=== PATIENT | female | born 1965 | race American Indian/Alaskan Native ===

== ENCOUNTER 2019-10-13 09:12 | Emergency (ER) | payer MEDICAID ==
--- NOTE | 2019-10-13 11:30 | Consultation ---
History of Present Illness Consult date: 10/13/19 History of present illness: [facility] Consult Services Date of Service: 10/13/2019 11:15:18 Impression: Toxic and metabolic, BP related. Comments/Sign-Out: Patient presented with gen weakness and dizziness, she was taken to CT and she was about to pass out but she did not. She has no focal weakness but she is generally weak, moves all equally, and no speech issues. - Toxic and metabolic work up - BP management - Presyncope work up Metrics: [facility] Notification Time: 10/13/2019 11:14:21 Arrival Time: 10/13/2019 09:00:00 Stamp Time: 10/13/2019 11:15:18 Time First Login Attempt: 10/13/2019 11:22:14 Video Start Time: 10/13/2019 11:22:14 Symptoms: Gen weakness NIHSS Start Assessment Time: 10/13/2019 11:23:02 Patient is not a candidate for tPA. Patient was not deemed candidate for tPA thrombolytics because of Resolved symptoms (no residual disabling symptoms). CT head showed no acute hemorrhage or acute core infarct. CT head was reviewed. Clinical Presentation is not Suggestive of Large Vessel Occlusive Disease, Patient is not a Candidate for Thrombectomy ED Physician notified of diagnostic impression and management plan on 10/13/2019 11:29:28 Our recommendations are outlined below. Recommendations: Activate Stroke Protocol Admission/Order Set Stroke/Telemetry Floor Neuro Checks Bedside Swallow Eval DVT Prophylaxis IV Fluids, Normal Saline Head of Bed Below 30 Degrees Euglycemia and Avoid Hyperthermia (PRN Acetaminophen) Antiplatelet Therapy Recommended Lipid Panel to Be Obtained, if Not Done in the Last 30 Days Therapies: Physical Therapy, Occupational Therapy, Speech Therapy Assessment When Applicable Disposition: Neurology Follow Up Recommended Sign Out: Discussed with Emergency Department Provider History of Present Illness: Patient is a 54 year old Female. Patient was brought by private transportation with symptoms of Gen weakness Patient presented with gen weakness and dizziness, she was taken to CT and she was about to pass out but she did not. She has no focal weakness but she is generally weak, moves all equally, and no speech issues. CT head showed no acute hemorrhage or acute core infarct. CT head was reviewed. Examination: 1A: Level of Consciousness - Alert; keenly responsive + 0 1B: Ask Month and Age - Both Questions Right + 0 1C: Blink Eyes & Squeeze Hands - Performs Both Tasks + 0 2: Test Horizontal Extraocular Movements - Normal + 0 3: Test Visual Lipscomb - No Visual Loss + 0 4: Test Facial Palsy (Use Grimace if Obtunded) - Normal symmetry + 0 5A: Test Left Arm Motor Drift - Drift, but doesn't hit bed + 1 5B: Test Right Arm Motor Drift - Drift, but doesn't hit bed + 1 6A: Test Left Leg Motor Drift - Drift, but doesn't hit bed + 1 6B: Test Right Leg Motor Drift - Drift, but doesn't hit bed + 1 7: Test Limb Ataxia (FNF/Heel-Watters) - No Ataxia + 0 8: Test Sensation - Normal; No sensory loss + 0 9: Test Language/Aphasia - Normal; No aphasia + 0 10: Test Dysarthria - Normal + 0 11: Test Extinction/Inattention - No abnormality + 0 NIHSS Score: 4 Patient was informed the Neurology Consult would happen via TeleHealth consult by way of interactive audio and video telecommunications and consented to receiving care in this manner. Due to the immediate potential for life-threatening deterioration due to underlying acute neurologic illness, I spent 35 minutes providing critical care. This time includes time for face to face visit via telemedicine, review of medical records, imaging studies and discussion of findings with providers, the patient and/or family. Dr Glen Aguayo [facility] Case [id number] Medications and Allergies Allergies Allergy/AdvReac Type Severity Reaction Status Date / Time No Known Allergies Allergy Verified 10/06/14 11:11 Home Medications Medication Instructions Recorded Confirmed Last Taken Type Fluticasone [Flonase] 1 spray NS QDAY #1 bottle 10/06/14 Unknown Rx Lisinopril/Hydrochlorothiazide 2 tab PO QDAY 10/06/14 10/06/14 10/06/14 10:00 History [Zestoretic 20-12.5 mg] Metoprolol [Lopressor TAB] 100 mg PO BID #60 tablet 10/06/14 Unknown Rx Pravastatin [Pravachol] 40 mg PO QDAY 10/06/14 10/06/14 10/06/14 10:00 History amLODIPine 10 mg PO QDAY 10/06/14 10/06/14 10/06/14 10:00 History carvediloL [Coreg] 12.5 mg PO BID #60 tablet 10/06/14 Unknown Rx Physical Examination - Vital Signs Vital Signs: Vital Signs Temp Pulse Resp BP Pulse Ox 97.4 F L 93 H 18 198/106 100 10/13/19 09:50 10/13/19 09:50 10/13/19 09:50 10/13/19 09:50 10/13/19 09:50 Results - Laboratory Findings Abnormal Lab Findings: Abnormal Labs 10/13/19 11:05 POC Glucose 109 H
--- NOTE | 2019-10-13 11:32 | Cat Scan Report ---
CT head/brain wo con INDICATION: Code stroke. TECHNIQUE: Routine CT head without contrast. All CT scans at this location are performed using CT dos e reduction for ALARA by means of automated exposure control. COMPARISON: None. FINDINGS: BRAIN / INTRACRANIAL CONTENTS: No acute hemorrhage, mass effect, midline shift, or hydrocephalus. No appreciable acute large territorial or lacunar infarct. There are chronic infarcts in the right occip ital lobe and right gangliocapsular region. ORBITS: No significant abnormality of visualized orbits. SINUSES / MASTOIDS: No significant abnormality of visualized sinuses and mastoid air cells. ADDITIONAL FINDINGS: None. IMPRESSION: 1. No appreciable acute infarct or other acute intracranial abnormality. 2. 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 Findings were discussed with Dr. Segovia at 10:27 AM central time on 10/13/2019. Signer Name: Armani Uribe MD Signed: 10/13/2019 11:27 AM Workstation Name: [id number]
[2019-10-13] MEDS ORDERED: MECLIZINE 25 MG TAB PO ONE (11:43)
[2019-10-13] MEDS ORDERED: SODIUM CHLORIDE 0.9% 1000 ML 1,000 ML IV ONE (11:44)
[2019-10-13] MEDS ORDERED: ONDANSETRON 4 MG/2 ML INJ IV ONE (11:44)
[2019-10-13] MEDS ORDERED: dexAMETHasone 20 MG/5 ML VIAL IV ONE (11:44)
[2019-10-13 12:12] LABS: Basophils % (Auto) 0.8 % (0.0-1.8); Eosinophils # (Auto) 0.2 K/mm3 (0.0-0.4); Eosinophils % (Auto) 3.5 % (0.0-4.3); Hematocrit 38.8 % (30.3-42.9); Hemoglobin 12.6 gm/dl (10.1-14.3); Lymphocytes # (Auto) 2.2 K/mm3 (1.2-5.4); Lymphocytes % (Auto) 35.1 % (13.4-35.0); Mean Corpuscular HGB Conc 33 % (30-34); Mean Corpuscular Volume 78 fl (79-97); Monocytes # (Auto) 0.3 K/mm3 (0.0-0.8); Monocytes % (Auto) 5.5 % (0.0-7.3); Platelet Count 273 K/mm3 (140-440); Red Blood Count 4.98 M/mm3 (3.65-5.03); Red Cell Distribution Width 14.8 % (13.2-15.2)
[2019-10-13 12:29] LABS: BUN/Creatinine Ratio 21; Blood Urea Nitrogen 30 mg/dL (7-17); Calcium 10.1 mg/dL (8.4-10.2); Hemolysis Index 12
[2019-10-13 13:31] LABS: INR 1.13 (0.87-1.13)
[2019-10-13 13:32] LABS: Partial Thromboplastin Time 31.2 Sec. (24.2-36.6)
--- NOTE | 2019-10-13 14:25 | Cat Scan Report ---
CTA HEAD AND NECK WITH CONTRAST HISTORY: Central dizziness COMPARISON: None. TECHNIQUE: All CT scans at this location are performed using CT dose reduction for ALARA by means of automated exposure control.. 3-D/MIP reformats postprocessed. Percentage stenosis is determined by d irect quantitative measurements of diseased internal carotid artery diameter compared with normal dis fatoumata internal carotid artery reference segments or by criteria similar to NASCET where applicable. CONTRAST: 100 ml of Omnipaque 350 FINDINGS: CTA HEAD: Intracranial vertebral arteries: The left vertebral artery is diminutive but remains patent intracran ially. The right vertebral artery is widely patent. Basilar artery: No significant abnormality. Posterior cerebral arteries: There is approximately 50% stenosis of the proximal left P1 segment of t he left PARACHUTE HARNESS RIGGER. Intracranial internal carotid arteries: There is mild atherosclerosis in the carotid siphons bilatera lly without significant stenosis. 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 Middle cerebral arteries: No significant abnormality. Dural venous sinuses:Not optimally opacified. No significant abnormality. CTA NECK: Aortic arch: There is 2 vessel branching pattern of the aortic arch with mild atherosclerotic calcifi cation without significant stenosis. Cervical vertebral arteries: The right vertebral artery is developmentally dominant. The left vertebr al artery is completely occluded from its origin in the neck to about the C5 vertebral level where it is reconstituted from collateral vessels and remains patent into the head. Common carotid arteries: No significant abnormality. Cervical internal carotid arteries: There is mild to moderate mixed plaque in both carotid bulbs with out any significant stenosis. Additional findings: There is global enlargement and heterogeneous appearance of the thyroid gland adhikari ggestive of goiter. IMPRESSION: 1. 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 2. Focal approximately 50% stenosis of the left P1 segment of the left PARACHUTE HARNESS RIGGER. 3. No additional large vessel occlusion or flow-limiting stenosis. Signer Name: Armani Uribe MD Signed: 10/13/2019 2:20 PM Workstation Name: [id number]
--- NOTE | 2019-10-13 14:25 | Cat Scan Report ---
CTA HEAD AND NECK WITH CONTRAST HISTORY: Central dizziness COMPARISON: None. TECHNIQUE: All CT scans at this location are performed using CT dose reduction for ALARA by means of automated exposure control.. 3-D/MIP reformats postprocessed. Percentage stenosis is determined by d irect quantitative measurements of diseased internal carotid artery diameter compared with normal dis fatoumata internal carotid artery reference segments or by criteria similar to NASCET where applicable. CONTRAST: 100 ml of Omnipaque 350 FINDINGS: CTA HEAD: Intracranial vertebral arteries: The left vertebral artery is diminutive but remains patent intracran ially. The right vertebral artery is widely patent. Basilar artery: No significant abnormality. Posterior cerebral arteries: There is approximately 50% stenosis of the proximal left P1 segment of t he left RELAY SHOP TESTER. Intracranial internal carotid arteries: There is mild atherosclerosis in the carotid siphons bilatera lly without significant stenosis. 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 Middle cerebral arteries: No significant abnormality. Dural venous sinuses:Not optimally opacified. No significant abnormality. CTA NECK: Aortic arch: There is 2 vessel branching pattern of the aortic arch with mild atherosclerotic calcifi cation without significant stenosis. Cervical vertebral arteries: The right vertebral artery is developmentally dominant. The left vertebr al artery is completely occluded from its origin in the neck to about the C5 vertebral level where it is reconstituted from collateral vessels and remains patent into the head. Common carotid arteries: No significant abnormality. Cervical internal carotid arteries: There is mild to moderate mixed plaque in both carotid bulbs with out any significant stenosis. Additional findings: There is global enlargement and heterogeneous appearance of the thyroid gland adhikari ggestive of goiter. IMPRESSION: 1. 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 2. Focal approximately 50% stenosis of the left P1 segment of the left RELAY SHOP TESTER. 3. No additional large vessel occlusion or flow-limiting stenosis. Signer Name: Armani Uribe MD Signed: 10/13/2019 2:20 PM Workstation Name: [id number]
--- NOTE | 2019-10-13 14:57 | Emergency Department Report ---
ED Dizziness HPI - General Chief Complaint: Dizziness Stated Complaint: HEADACHE Time Seen by Provider: 10/13/19 11:33 Source: patient Mode of arrival: Ambulatory Limitations: No Limitations - History of Present Illness Initial Comments: Patient is a 54-year-old F [place] female who is presenting with dizziness for the past 2 weeks. Patient states symptoms worsened today. She states that while lying in bed when she turns her head sometimes when she is completely still she feels as though the room is spinning. She said some mild nausea. Patient states that occasionally she feels as though her eyes are rapidly moving side to side and there is been some instances where she feels as though she cannot speak. When the patient came to triage she seem to look off into space at one point was not responding briefly. Patient appeared weak at that time. Patient denies fevers chills cough cold or congestion at this time. - Related Data Home Medications Medication Instructions Recorded Confirmed Last Taken Lisinopril/Hydrochlorothiazide 2 tab PO QDAY 10/06/14 10/06/14 10/06/14 10:00 [Zestoretic 20-12.5 mg] Pravastatin [Pravachol] 40 mg PO QDAY 10/06/14 10/06/14 10/06/14 10:00 amLODIPine 10 mg PO QDAY 10/06/14 10/06/14 10/06/14 10:00 Previous Rx's Medication Instructions Recorded Last Taken Type Fluticasone [Flonase] 1 spray NS QDAY #1 bottle 10/06/14 Unknown Rx Metoprolol [Lopressor TAB] 100 mg PO BID #60 tablet 10/06/14 Unknown Rx carvediloL [Coreg] 12.5 mg PO BID #60 tablet 10/06/14 Unknown Rx Allergies Allergy/AdvReac Type Severity Reaction Status Date / Time No Known Allergies Allergy Verified 10/06/14 11:11 ED Review of Systems ROS: Stated complaint: HEADACHE Other details as noted in HPI Comment: All other systems reviewed and negative ED Past Medical Hx - Past Medical History Previous Medical History?: Yes Hx Hypertension: Yes - Surgical History Past Surgical History?: Yes Additional Surgical History: ECTOPIC - Social History Smoking Status: Former Smoker Substance Use Type: None - Medications Home Medications: Home Medications Medication Instructions Recorded Confirmed Last Taken Type Fluticasone [Flonase] 1 spray NS QDAY #1 bottle 10/06/14 Unknown Rx Lisinopril/Hydrochlorothiazide 2 tab PO QDAY 10/06/14 10/06/14 10/06/14 10:00 History [Zestoretic 20-12.5 mg] Metoprolol [Lopressor TAB] 100 mg PO BID #60 tablet 10/06/14 Unknown Rx Pravastatin [Pravachol] 40 mg PO QDAY 10/06/14 10/06/14 10/06/14 10:00 History amLODIPine 10 mg PO QDAY 10/06/14 10/06/14 10/06/14 10:00 History carvediloL [Coreg] 12.5 mg PO BID #60 tablet 10/06/14 Unknown Rx ED Physical Exam - General Limitations: No Limitations General appearance: alert, in no apparent distress - Head Head exam: Present: atraumatic, normocephalic - Eye Eye exam: Present: normal appearance - ENT ENT exam: Present: mucous membranes moist - Neck Neck exam: Present: normal inspection. Absent: tenderness, meningismus - Respiratory Respiratory exam: Present: normal lung sounds bilaterally. Absent: respiratory distress, wheezes, rales, rhonchi - Cardiovascular Cardiovascular Exam: Present: regular rate, normal rhythm, normal heart sounds. Absent: systolic murmur, diastolic murmur, rubs, gallop - GI/Abdominal GI/Abdominal exam: Present: soft, normal bowel sounds. Absent: distended, tenderness, guarding, rebound - Extremities Exam Extremities exam: Present: normal inspection - Back Exam Back exam: Present: normal inspection - Neurological Exam Neurological exam: Present: alert, oriented X3 - Psychiatric Psychiatric exam: Present: normal affect, normal mood - Skin Skin exam: Present: warm, dry, intact, normal color. Absent: rash ED Course Vital Signs 10/13/19 10/13/19 10/13/19 09:50 10:56 12:00 Temperature 97.4 F L 97.3 F L Pulse Rate 93 H 109 H 92 H Respiratory 18 20 18 Rate Blood Pressure 198/106 109/73 137/88 [Right] O2 Sat by Pulse 100 100 97 Oximetry - Reevaluation(s) Reevaluation #1: 10/13/19 14:56 Stroke alert was called and the patient arrived because she has dizziness plus another neurological symptom. Patient also started on IV fluids and was given medication for dizziness. Patient given 50 mg of Antivert. ED Medical Decision Making - Lab Data Result diagrams: 10/13/19 11:38 10/13/19 11:38 Lab Results 10/13/19 10/13/19 10/13/19 Range/Units 11:05 11:38 11:38 WBC 6.3 (4.5-11.0) K/mm3 RBC 4.98 (3.65-5.03) M/mm3 Hgb 12.6 (10.1-14.3) gm/dl Hct 38.8 (30.3-42.9) % MCV 78 L (79-97) fl MCH 25 L (28-32) pg MCHC 33 (30-34) % RDW 14.8 (13.2-15.2) % Plt Count 273 (140-440) K/mm3 Lymph % (Auto) 35.1 H (13.4-35.0) % Teton % (Auto) 5.5 (0.0-7.3) % Eos % (Auto) 3.5 (0.0-4.3) % Baso % (Auto) 0.8 (0.0-1.8) % Lymph # 2.2 (1.2-5.4) K/mm3 [place]eton # 0.3 (0.0-0.8) K/mm3 Eos # 0.2 (0.0-0.4) K/mm3 Baso # 0.0 (0.0-0.1) K/mm3 Seg Neutrophils % 55.1 (40.0-70.0) % Seg Neutrophils # 3.5 (1.8-7.7) K/mm3 PT (12.2-14.9) Sec. INR (0.87-1.13) APTT (24.2-36.6) Sec. Thrombin Time (15.1-19.6) Sec. Sodium 134 L (137-145) mmol/L Potassium 4.3 (3.6-5.0) mmol/L Chloride 100.2 (98-107) mmol/L Carbon Dioxide 19 L (22-30) mmol/L Anion Gap 19 mmol/L BUN 30 H (7-17) mg/dL Creatinine 1.4 H (0.7-1.2) mg/dL Estimated GFR 48 ml/min BUN/Creatinine Ratio 21 % Glucose 134 H (65-100) mg/dL POC Glucose 109 H (70-105) Calcium 10.1 (8.4-10.2) mg/dL Troponin T < 0.010 (0.00-0.029) ng/mL 10/13/19 10/13/19 Range/Units 12:51 12:51 WBC (4.5-11.0) K/mm3 RBC (3.65-5.03) M/mm3 Hgb (10.1-14.3) gm/dl Hct (30.3-42.9) % MCV (79-97) fl MCH (28-32) pg MCHC (30-34) % RDW (13.2-15.2) % Plt Count (140-440) K/mm3 Lymph % (Auto) (13.4-35.0) % [place]eton % (Auto) (0.0-7.3) % Eos % (Auto) (0.0-4.3) % Baso % (Auto) (0.0-1.8) % Lymph # (1.2-5.4) K/mm3 [place]eton # (0.0-0.8) K/mm3 Eos # (0.0-0.4) K/mm3 Baso # (0.0-0.1) K/mm3 Seg Neutrophils % (40.0-70.0) % Seg Neutrophils # (1.8-7.7) K/mm3 PT 14.7 (12.2-14.9) Sec. INR 1.13 (0.87-1.13) APTT 31.2 (24.2-36.6) Sec. Thrombin Time 16.9 (15.1-19.6) Sec. Sodium (137-145) mmol/L Potassium (3.6-5.0) mmol/L Chloride (98-107) mmol/L Carbon Dioxide (22-30) mmol/L Anion Gap mmol/L BUN (7-17) mg/dL Creatinine (0.7-1.2) mg/dL Estimated GFR ml/min BUN/Creatinine Ratio % Glucose (65-100) mg/dL POC Glucose (70-105) Calcium (8.4-10.2) mg/dL Troponin T (0.00-0.029) ng/mL Vital Signs 10/13/19 10/13/19 09:50 10:56 Temperature 97.4 F L 97.3 F L Pulse Rate 93 H 109 H Respiratory 18 20 Rate Blood Pressure 198/106 109/73 [Right] O2 Sat by Pulse 100 100 Oximetry - Radiology Data [address] [id number] Cat Scan Report Signed Patient: VERONICA JOSE MR#: [id number] : 1965 Acct:[id number] Age/Sex: 54 / F ADM Date: 10/13/19 Loc: ED Attending Dr: Ordering Physician: ROSS ABREU MD Date of Service: 10/13/19 Procedure(s): CT head/brain wo con Accession Number(s): [id number] cc: ROSS ABREU MD CT head/brain wo con INDICATION: Code stroke. TECHNIQUE: Routine CT head without contrast. All CT scans at this location are performed using CT dose reduction for ALARA by means of automated exposure control. COMPARISON: None. FINDINGS: BRAIN / INTRACRANIAL CONTENTS: No acute hemorrhage, mass effect, midline shift, or hydrocephalus. No appreciable acute large territorial or lacunar infarct. There are chronic infarcts in the right occipital lobe and right gangliocapsular region. ORBITS: No significant abnormality of visualized orbits. SINUSES / MASTOIDS: No significant abnormality of visualized sinuses and mastoid air cells. ADDITIONAL FINDINGS: None. IMPRESSION: 1. No appreciable acute infarct or other acute intracranial abnormality. 2. 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 Findings were discussed with Dr. Segovia at 10:27 AM central time on 10/13/2019. Signer Name: Armani Uribe MD Signed: 10/13/2019 11:27 AM Workstation Name: [id number] [address] [address] Cat Scan Report Signed Patient: VERONICA JOSE MR#: [id number] : 1965 Acct:[id number] Age/Sex: 54 / F ADM Date: 10/13/19 Loc: ED Attending Dr: Ordering Physician: THUAN SEGOVIA MD Date of Service: 10/13/19 Procedure(s): CT angio head Accession Number(s): [id number] cc: THUAN SEGOVIA MD CTA HEAD AND NECK WITH CONTRAST HISTORY: Central dizziness COMPARISON: None. TECHNIQUE: All CT scans at this location are performed using CT dose reduction for ALARA by means of automated exposure control.. 3-D/MIP reformats postprocessed. Percentage stenosis is determined by direct quantitative measurements of diseased internal carotid artery diameter compared with normal distal internal carotid artery reference segments or by criteria similar to NASCET where applicable. CONTRAST: 100 ml of Omnipaque 350 FINDINGS: CTA HEAD: Intracranial vertebral arteries: The left vertebral artery is diminutive but remains patent intracranially. The right vertebral artery is widely patent. Basilar artery: No significant abnormality. Posterior cerebral arteries: There is approximately 50% stenosis of the proximal left P1 segment of the left DIESEL TRAILER MECHANIC. Intracranial internal carotid arteries: There is mild atherosclerosis in the carotid siphons bilaterally without significant stenosis. 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 Middle cerebral arteries: No significant abnormality. Dural venous sinuses:Not optimally opacified. No significant abnormality. CTA NECK: Aortic arch: There is 2 vessel branching pattern of the aortic arch with mild atherosclerotic calcification without significant stenosis. Cervical vertebral arteries: The right vertebral artery is developmentally dominant. The left vertebral artery is completely occluded from its origin in the neck to about the C5 vertebral level where it is reconstituted from collateral vessels and remains patent into the head. Common carotid arteries: No significant abnormality. Cervical internal carotid arteries: There is mild to moderate mixed plaque in both carotid bulbs without any significant stenosis. Additional findings: There is global enlargement and heterogeneous appearance of the thyroid gland suggestive of goiter. IMPRESSION: 1. 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 2. Focal approximately 50% stenosis of the left P1 segment of the left DIESEL TRAILER MECHANIC. 3. No additional large vessel occlusion or flow-limiting stenosis. Signer Name: Armani Uribe MD Signed: 10/13/2019 2:20 PM Workstation Name: [id number] Transcribed By: KAREN Dictated By: Armani Uribe MD Electronically Authenticated By: Armani Uribe MD Signed Date/Time: 10/13/19 [id number] - Medical Decision Making Patient is CT does show that he had she has a left vertebral artery which is occluded. Is unable to determine whether this is chronic or acute. There are no CT changes consistent with an acute or subacute stroke at this time and the patient has had symptoms off and on for the past 2 weeks. Our neurologist is claudio morse whether this is old or new process is recommended the patient get an MRI. Spoke to Dr. Vale with the internal medicine service who states he will see the patient. At 1539 the patient stated that she could not stay because she had to get her children and get themselves at home. Patient states she would likely return tomorrow if symptoms return. She is signed out AGAINST MEDICAL ADVICE since she had not been evaluated by her internal medicine physician and the neurologist suggested admission. Patient did sign the AMA form Critical care attestation.: If time is entered above; I have spent that time in minutes in the direct care of this critically ill patient, excluding procedure time. ED Disposition Clinical Impression: Dizziness Vertebral artery occlusion Qualifiers: Laterality: left Qualified Code(s): I65.02 - Occlusion and stenosis of left vertebral artery Disposition: DC-07 LEFT AGAINST MED ADVICE Is pt being admited?: No Does the pt Need Aspirin: No Condition: Stable Referrals: PRIMARY CARE, [Primary Care Provider] - 3-5 Days Time of Disposition: 15:40 - Level of Consciousness 1a. Level of Consciousness: alert/keenly responsive - LOC Questions 1b. LOC Questions: answers both correctly - LOC Command 1c. LOC Commands: performs tasks correctly - Best Gaze 2. Best Gaze: normal - Visual 3. Visual: no visual loss - Facial Palsy 4. Facial Palsy: normal symmetrical movement - Motor Arm 5a. Motor Arm Left: drift 5b. Motor Arm Right: drift - Motor Leg 6a. Motor Leg Left: drift 6b. Motor Leg Right: drift - Limb Ataxia 7. Limb Ataxia: absent - Sensory 8. Sensory: normal - Best Language 9. Best Language: no aphasia - Dysarthria 10. Dysarthria: normal - Extinction and Inattention 11. Extinction/Inattention: no abnormality - Scoring Total Score: 4 Stroke Severity: Minor Stroke
[2019-10-13 15:09] VITALS: BP 137/88
== END 2019-10-13 15:37 | disposition left against medical advice (07) ==
LOC: ED 09:12
DX: I65.02 Occlusion and stenosis of left vertebral artery (principal); R42 Dizziness and giddiness; I10 Essential (primary) hypertension; Z79.899 Other long term (current) drug therapy; Z87.891 Personal history of nicotine dependence; Z98.890 Other specified postprocedural states
CPT/HCPCS: 36415; 70450; 70496; 70498; 80048; 82962; 84484; 85025; 85610; 85670; 85730; 93005; 93010; 96361; 96374; 96375; 99284; J1100; J2405; J7030; Q9967

== ENCOUNTER 2019-10-14 09:48 | Emergency (ER) | payer MEDICAID ==
--- NOTE | 2019-10-14 12:30 | Emergency Department Report ---
ED General Adult HPI - General Chief complaint: Headache Stated complaint: MED CLEAR Time Seen by Provider: 10/14/19 11:29 Source: patient Mode of arrival: Ambulatory Limitations: No Limitations - History of Present Illness Initial comments: 54-year-old female was seen yesterday in ED for dizziness. Patient was evaluated by neurologist for possible stroke. CT head was negative. CTA head and neck showed some vessel stenosis and occlusion. Patient was supposed to have been admitted on yesterday, however she left AMA. Patient returns today for admission. -: days(s) (1) Consistency: now resolved Associated Symptoms: denies: chest pain, headaches, shortness of breath - Related Data Home Medications Medication Instructions Recorded Confirmed Last Taken Lisinopril/Hydrochlorothiazide 2 tab PO QDAY 10/06/14 10/06/14 10/06/14 10:00 [Zestoretic 20-12.5 mg] Pravastatin [Pravachol] 40 mg PO QDAY 10/06/14 10/06/14 10/06/14 10:00 amLODIPine 10 mg PO QDAY 10/06/14 10/06/14 10/06/14 10:00 Previous Rx's Medication Instructions Recorded Last Taken Type Fluticasone [Flonase] 1 spray NS QDAY #1 bottle 10/06/14 Unknown Rx Metoprolol [Lopressor TAB] 100 mg PO BID #60 tablet 10/06/14 Unknown Rx carvediloL [Coreg] 12.5 mg PO BID #60 tablet 10/06/14 Unknown Rx Allergies Allergy/AdvReac Type Severity Reaction Status Date / Time No Known Allergies Allergy Verified 10/06/14 11:11 ED Review of Systems ROS: Stated complaint: MED CLEAR Other details as noted in HPI Comment: All other systems reviewed and negative Constitutional: denies: chills, fever Respiratory: denies: shortness of breath Cardiovascular: denies: chest pain Neurological: vertigo ED Past Medical Hx - Past Medical History Hx Hypertension: Yes - Surgical History Additional Surgical History: ECTOPIC - Social History Smoking Status: Former Smoker Substance Use Type: None - Medications Home Medications: Home Medications Medication Instructions Recorded Confirmed Last Taken Type Fluticasone [Flonase] 1 spray NS QDAY #1 bottle 10/06/14 Unknown Rx Lisinopril/Hydrochlorothiazide 2 tab PO QDAY 10/06/14 10/06/1410/06/15 10:00 History [Zestoretic 20-12.5 mg] Metoprolol [Lopressor TAB] 100 mg PO BID #60 tablet 10/06/14 Unknown Rx Pravastatin [Pravachol] 40 mg PO QDAY 10/06/14 10/06/14 10/06/14 10:00 History amLODIPine 10 mg PO QDAY 10/06/14 10/06/14 10/06/14 10:00 History carvediloL [Coreg] 12.5 mg PO BID #60 tablet 10/06/14 Unknown Rx ED Physical Exam - General Limitations: No Limitations General appearance: alert, in no apparent distress - Head Head exam: Present: atraumatic, normocephalic - Eye Eye exam: Present: normal appearance, PERRL, EOMI - ENT ENT exam: Present: mucous membranes moist - Neck Neck exam: Present: normal inspection - Respiratory Respiratory exam: Present: normal lung sounds bilaterally. Absent: respiratory distress - Cardiovascular Cardiovascular Exam: Present: regular rate, normal rhythm - GI/Abdominal GI/Abdominal exam: Present: soft. Absent: distended, tenderness - Extremities Exam Extremities exam: Present: normal inspection - Neurological Exam Neurological exam: Present: alert, oriented X3, CN II-XII intact. Absent: motor sensory deficit - Psychiatric Psychiatric exam: Present: normal affect, normal mood - Skin Skin exam: Present: warm, dry, intact, normal color. Absent: rash ED Course - Reevaluation(s) Reevaluation #1: 10/14/19 12:15 Pt not in room. Unclear if she has eloped. Will check back. ED Medical Decision Making - Medical Decision Making Seen yesterday for dizziness. Plan was for patient to be admitted on yesterday, however, she left AMA from the ED. Patient initially stated today that she returned for admission. However, I went back into the room and patient was gone. Patient has eloped. Critical care attestation.: If time is entered above; I have spent that time in minutes in the direct care of this critically ill patient, excluding procedure time. ED Disposition Clinical Impression: Dizziness Disposition: Z-07 ELOPED Is pt being admited?: No Condition: Stable Referrals: PRIMARY CARE,MD [Primary Care Provider] - 3-5 Days
== END 2019-10-14 12:47 | disposition left against medical advice (07) ==
LOC: ED 09:48
DX: R42 Dizziness and giddiness (principal); I10 Essential (primary) hypertension; Z87.891 Personal history of nicotine dependence; Z79.899 Other long term (current) drug therapy
CPT/HCPCS: 99282

== ENCOUNTER 2020-11-28 10:45 | Outpatient (CLI) | payer OTHER ==
--- NOTE | 2020-11-28 13:39 | XRay Report ---
Lumbar spine 3 views INDICATION: Low back pain IMPRESSION: Moderate to severe discogenic degenerative change at L4-L5 and L5-S1 causing mild lateral neural foraminal narrowing at L5-S1. Signer Name: Radu Ruiz MD Signed: 11/28/2020 1:34 PM Workstation Name: [id number]
--- NOTE | 2020-11-28 13:40 | XRay Report ---
Knee bilateral 6 views INDICATION: Bilateral knee pain IMPRESSION: Diffuse osteopenia of the knees. No fracture or subluxation is identified. Signer Name: Radu Ruiz MD Signed: 11/28/2020 1:35 PM Workstation Name: [id number]
== END 2020-11-28 10:46 | disposition home or self-care (01) ==
LOC: XRAY 10:45
PROVIDERS: ATTEND Internal Medicine
DX: M47.817 Spondylosis without myelopathy or radiculopathy, lumbosacral region (principal); M48.07 Spinal stenosis, lumbosacral region; M85.862 Other specified disorders of bone density and structure, left lower leg; M85.861 Other specified disorders of bone density and structure, right lower leg
CPT/HCPCS: 72100

== ENCOUNTER 2022-05-03 17:24 | Emergency (ER) | payer MEDICAID, OTHER ==
[2022-05-03] MEDS ORDERED: SODIUM CHLORIDE 0.9% 1000 ML 1,000 ML IV ONE (17:29)
[2022-05-03] MEDS ORDERED: MORPHINE 4 MG/1 ML INJ IV ONE (17:29)
--- NOTE | 2022-05-03 18:17 | Emergency Department Report ---
HPI - General Chief Complaint: Head Injury PUI?: No Time Seen by Provider: 05/03/22 17:27 - HPI HPI: 56-year-old morbidly obese female with multiple medical comorbidities presents she sustained for evaluation of headache and head injury. Patient reports prior to arrival she was walking down a hill and lost her balance and fell forward, hitting her head on concrete. to severe deep lacerations to her forehead and face and has associated swelling. She feels nauseated. No vomiting fevers or chills. No neck pain no tingling numbness in her arms or legs. She denies pain to any other location of her body. Patient states she is on Coumadin secondary to prior pulmonary embolism and deep venous thrombosis. She last took Coumadin 1 day ago. Pain currently 10 out of 10. ED Past Medical Hx - Past Medical History Previous Medical History?: Yes Hx Hypertension: Yes Hx Congestive Heart Failure: Yes Additional medical history: NEEDS STENTS - Surgical History Additional Surgical History: ECTOPIC - Social History Smoking Status: Current Every Day Smoker Substance Use Type: Alcohol - Medications Home Medications: Home Medications Medication Instructions Recorded Confirmed Last Taken Type Fluticasone [Flonase] 1 spray NS QDAY #1 bottle 10/06/14 Unknown Rx Lisinopril/Hydrochlorothiazide 2 tab PO QDAY 10/06/14 10/06/14 10/06/14 10:00 History [Zestoretic 20-12.5 mg] Metoprolol [Lopressor TAB] 100 mg PO BID #60 tablet 10/06/14 Unknown Rx Pravastatin [Pravachol] 40 mg PO QDAY 10/06/14 10/06/14 10/06/14 10:00 History amLODIPine 10 mg PO QDAY 10/06/14 10/06/14 10/06/14 10:00 History carvediloL [Coreg] 12.5 mg PO BID #60 tablet 10/06/14 Unknown Rx ED Review of Systems ROS: Stated complaint: HEAD INJURY Other details as noted in HPI Remainder of ROS neg Comment: All other systems reviewed and negative Physical Exam - Physical Exam Vital Signs: Vital Signs 05/03/22 17:39 Temperature 97.6 F Pulse Rate 112 H Respiratory 20 Rate Blood Pressure 189/111 [Right] O2 Sat by Pulse 100 Oximetry General: Gen obese female, crying, obvious head trauma noted, moderate amount of blood on patient's face, moderate distress, secondary to pain HEENT: Normocephalic pt has large V shaped laceration of forehead extending to superior aspect of the pt's face; pt has minimal oozing blood but no arterial bleeding; pt has moderate sized hematoma at vertez of laceration site; moderate edema to forehead and face; pupils equally round and reactive to light extraocular muscles intact sclera anicteric; no mccormick sign, no raccoon sign, no otorrhea, no septal perforations or hematomas, no epistaxis, oropharynx grossly unremarkable, dentition normal, tympanic membranes clear bilaterally, no mastoid bone tenderness palpation on exam Neck: Full range of motion, no midline spinal tenderness palpation, no JVD, no carotid bruits, no nuchal rigidity CVS: S1-S2 regular rate and rhythm with no gallops rubs or murmurs, chest wall nontender Pulmonary: Clear to auscultation bilaterally, no wheezes rales or rhonchi Abdomen: Soft nondistended nontender no guarding or rebound tenderness, no palpable deformities or step-offs, normal active bowel sounds, no hepatosplenomegaly, no pulsatile masses BACK: FROM, no midline spinal ttp; no palpable deformities/step offs : Deferred Extremities: No cyanosis no clubbing no edema, intact distal peripheral pulses, Integumentary: Skin normal, no petechia no purpura no abscess no lacerations no evidence of trauma no evidence of infection Neuro: Patient is awake alert and oriented to person place time situation, mentating well, cranial nerves II through XII intact, no focal neurodeficits, sensation grossly tact Psych: Calm cooperative, mood affect normal ED Course Vital Signs 05/03/22 17:39 Temperature 97.6 F Pulse Rate 112 H Respiratory 20 Rate Blood Pressure 189/111 [Right] O2 Sat by Pulse 100 Oximetry - Reevaluation(s) Reevaluation #1: 05/03/22 20:52 pt reassessed; she is comfortable and well appearing; [employer] ED Medical Decision Making - Lab Data Result diagrams: 05/03/22 18:33 05/03/22 18:33 - Radiology Data Radiology results: report reviewed - Medical Decision Making 56-year-old female with multiple medical comorbidities, who currently takes Coumadin in the setting of prior pulmonary embolism per her report, presents fr external triage for evaluation of ground-level fall, facial laceration, and headache. Vitals reviewed. Serum labs reviewed as well. Patient has subtherapeutic INR. Hemoglobin hematocrit platelets are within normal limits patient's serum alcohol level is elevated. The Diagnostic imaging results reviewed. The patient has a significant laceration from her forehead extending into her face with evidence of an expanding hematoma on her forehead. The laceration site contains galea and skull exposure. Due to the severity of the pt's injury as well the likelihood of her needing surgical drainage of the expanding hematoma on her forehead, the pt will necessitate evaluation/management by trauma surgeyr service. The pt was accepted for transfer to [facility] ER, by Dr. Farr. Critical Care Time: No Critical care attestation.: If time is entered above; I have spent that time in minutes in the direct care of this critically ill patient, excluding procedure time. ED Disposition Clinical Impression: Head trauma, Traumatic hematoma of forehead, Alcohol intoxication Disposition: 02 [facility] Is pt being admited?: No Does the pt Need Aspirin: No Condition: Stable
--- NOTE | 2022-05-03 18:58 | Cat Scan Report ---
CT CERVICAL SPINE WITHOUT CONTRAST INDICATION / CLINICAL INFORMATION: posetrior neck pain, fall, trauma. TECHNIQUE: Axial CT images were obtained through the cervical spine. Sagittal and coronal reformatted images wer e produced. All CT scans at this location are performed using CT dose reduction for ALARA by means of automated exposure control. COMPARISON: CTA neck 10/13/2019 FINDINGS: POSTOPERATIVE CHANGE:none ALIGNMENT: Loss of the normal cervical lordosis is noted. No additional abnormalities of alignment ar e identified. No indication of traumatic subluxation. VERTEBRAE: No indication of fracture or other osseous abnormality. DISC SPACES: Disc height is fairly well-maintained. DEGENERATIVE CHANGES: Small anterior osteophytes are noted at the C3-4 and C5-6 levels. CRANIOCERVICAL JUNCTION:No significant abnormality. SPINAL CANAL: Central spinal canal is adequate in size throughout cervical region. PARASPINAL SOFT TISSUES: Dr. Enlargement of the right and left lobes of the thyroid gland is observed . The thyroid isthmus is also enlarged. The posterior medial aspects of the thyroid gland are in clos e proximity. This may compress the cervical esophagus. Are there signs or symptoms of dysphasia ADDITIONAL FINDINGS: None. LUNG APICES: No significant abnormality of visualized lungs. IMPRESSION: 1. No indication of fracture or traumatic subluxation. 2. Large thyroid goiter. Are there symptoms of dysphasia Signer Name: Eric Haddad MD Signed: 05/03/2022 6:54 PM Workstation Name: [id number]
--- NOTE | 2022-05-03 19:06 | Cat Scan Report ---
CT HEAD WITHOUT CONTRAST INDICATION / CLINICAL INFORMATION: on coumadin, fall, head injury, large lacs; eval. TECHNIQUE: All CT scans at this location are performed using CT dose reduction for ALARA by means of automated e xposure control. COMPARISON: Head CT 10/13/2019 FINDINGS: HEMORRHAGE: No evidence of intracranial hemorrhage or extra-axial fluid collection. EXTRA-AXIAL SPACES: Cortical sulci, sylvian fissures and basilar cisterns have an unremarkable appear ance. VENTRICULAR SYSTEM: The third and lateral ventricles are of normal size and configuration. CEREBRAL PARENCHYMA: Encephalomalacia is again demonstrated in the right occipital lobe secondary to remote right posterior cerebral artery infarction. A 10 mm diameter remote small deep infarction is d emonstrated in the right basal ganglia. This is unchanged. Also unchanged is a remote small deep infa rction in the head of caudate nucleus on the right. Periventricular white matter lucency is noted ref lecting presence of microvascular ischemic change. Similar findings were present on previous study. MIDLINE SHIFT OR HERNIATION: There is no mass effect. CEREBELLUM / BRAINSTEM: Brainstem and cerebellum have an unremarkable appearance. MIDLINE STRUCTURES:No abnormalities of the pituitary gland or pineal region are identified. INTRACRANIAL VESSELS: Calcified atherosclerotic plaque is seen along the course the cavernous segment s of both internal carotid arteries. ORBITS: visualized portions of the orbits have an unremarkable appearance. SOFT TISSUES of HEAD: There is a large midline forehead scalp hematoma. Subcutaneous emphysema is obs erved consistent with scalp laceration. A right lateral supraorbital piercing and nostril piercing ar e incidentally noted. CALVARIUM: Evaluation of bone windows reveals no abnormalities. PARANASAL SINUSES / MASTOID AIR CELLS: Opacification of the left maxillary sinus is noted. Mucosal di sease is present within anterior and mid ethmoid air cells bilaterally. Paranasal sinuses otherwise a ppear clear. Mastoid air cells and middle ear cavities are normally pneumatized. ADDITIONAL FINDINGS: None. IMPRESSION: 1. Large midline forehead scalp hematoma. 2. Remote right occipital infarction and remote small deep infarction right basal ganglia and remote small deep infarction head of caudate nucleus on the left. These findings are unchanged. 3. No acute intracranial abnormality. Signer Name: Eric Haddad MD Signed: 05/03/2022 7:02 PM Workstation Name: [id number]
[2022-05-03 19:28] LABS: Basophils # (Auto) 0.1 K/mm3 (0.0-0.1); Basophils % (Auto) 1.1 % (0.0-1.8); Eosinophils # (Auto) 0.1 K/mm3 (0.0-0.4); Eosinophils % (Auto) 1.8 % (0.0-4.3); Hematocrit 41.2 % (30.3-42.9); Hemoglobin 13.6 gm/dl (10.1-14.3); Mean Corpuscular HGB Conc 33 % (30-34); Mean Corpuscular Volume 81 fl (79-97); Monocytes # (Auto) 0.4 K/mm3 (0.0-0.8); Monocytes % (Auto) 5.2 % (0.0-7.3); Platelet Count 223 K/mm3 (140-440); Red Blood Count 5.11 M/mm3 (3.65-5.03); Red Cell Distribution Width 16.5 % (13.2-15.2)
[2022-05-03 19:33] LABS: Albumin 4.8 g/dL (3.9-5); Calcium 9.4 mg/dL (8.4-10.2)
[2022-05-03 19:44] LABS: INR 0.82 (0.87-1.13)
--- NOTE | 2022-05-03 20:00 | Cat Scan Report ---
CT MAXILLOFACIAL WITHOUT CONTRAST INDICATION / CLINICAL INFORMATION: mid facial pain s/p fall, head and face trauma. TECHNIQUE: All CT scans at this location are performed using CT dose reduction for ALARA by means of automated e xposure control. COMPARISON: CT angiogram neck 10/13/2019 FINDINGS: FACIAL BONES: No fracture or other significant abnormality. SKIN GRADER SPACES:Evaluation of the complaint evaluation supervisor space structures reveal no abnormalities. SALIVARY GLANDS: Parotid and submandibular salivary glands have an unremarkable appearance. PARANASAL SINUSES: Opacification of the right maxillary sinus is noted. Mild mucosal thickening is pr esent in sphenoid sinuses bilaterally. Frontal and left maxillary sinuses are clear. NASAL CAVITY: Status post resection of left middle turbinate and status post subtotal ethmoidectomy o n the left. ORBITS: Globes, optic nerves and extraocular muscles have an unremarkable appearance. TEMPORAL BONES:Visualized mastoid air cells and the middle ear cavities are normally pneumatized. VISUALIZED INTRACRANIAL STRUCTURES: Refer to CT head dictated separately. ADDITIONAL FINDINGS: None. IMPRESSION: 1. No indication of facial fracture or other osseous abnormality. 2. Inflammatory changes in the sinonasal cavity as described above. Signer Name: Eric Haddad MD Signed: 05/03/2022 7:56 PM Workstation Name: [id number]
[2022-05-03 23:30] VITALS: BP 189/86
== END 2022-05-03 21:15 | disposition short-term general hospital (02) ==
LOC: ED 17:24
DX: S09.90XA Unspecified injury of head, initial encounter (principal); S00.83XA Contusion of other part of head, initial encounter; F10.129 Alcohol abuse with intoxication, unspecified; X58.XXXA Exposure to other specified factors, initial encounter; Y93.89 Activity, other specified; Y92.89 Other specified places as the place of occurrence of the external cause; Y99.8 Other external cause status
CPT/HCPCS: 36415; 70450; 70486; 72125; 80053; 85025; 85610; 85730; 96361; 96374; 99284; J2270; J7030; 80320; G0480